=== PATIENT | male | born 1945 | race Asian ===

== ENCOUNTER 2023-06-12 06:54 | Outpatient (CLI) | payer BC, SELFPAY | END 2023-06-12 06:55 | disposition home or self-care (01) | LOC: INJ CL 06:59 | PROVIDERS: Visit Provider Family Medicine | DX: M54.16 Radiculopathy, lumbar region (principal); M48.062 Spinal stenosis, lumbar region with neurogenic claudication | CPT/HCPCS: 62323; J0702; Q9966 ==

== ENCOUNTER 2024-05-23 15:29 | Emergency (ER) | payer BC, SELFPAY ==
[2024-05-23 15:44] VITALS: BP 146/72; PULSE 67; RESP 20; TEMP 36.1; O2SAT 97
--- NOTE | 2024-05-23 16:06 | CRLHL7_ITS ---
For Patients: As a result of the Century Cures Act, medical imaging exams and procedure reports are released immediately into your electronic medical record. You may view this report before your referring provider. If you have questions, please contact your health care provider. Indication: Fall 1 week prior Technique: Volumetric multidetector CT images of the head were obtained without the administration of low osmolar intravenous contrast. Comparison: None available Findings: There is no intra-axial or extra-axial fluid collection. There is no mass effect or midline shift. There is age-related cortical atrophy with mild sulcal widening and ex vacuo dilatation of the lateral ventricles. There are chronic small vessel disease changes in the subcortical and periventricular white matter without lost blevins-white differentiation. The orbits and their contents are grossly within normal limits. The bony calvarium is grossly intact. The paranasal sinuses are clear. The mastoid air cells are well aerated. Impression: 1. Age-related changes of the brain without acute intracranial abnormality. Please note that all CT scans at this facility use dose modulation, iterative reconstruction, and/or weight-based dosing when appropriate to reduce radiation dose to as low as reasonably achievable. Dictated by Karl Lawler MD @ 05/23/2024 4:43:11 PM (Electronically Signed)
--- NOTE | 2024-05-23 16:46 | ED.GENADULT ---
HPI - General Adult General Chief complaint: Headache/Migraine Stated complaint: Fell last week, hit head; headache Time Seen by Provider: 05/23/24 16:05 Source: family and hourly sign language interpreter Mode of arrival: ambulatory Limitations: language barrier History of Present Illness HPI narrative: [age] year old patient coming in today complaining of head and neck pain. Six days ago patient lost control of his walker and fell backwards hitting his head on the concrete. He states that he has pain in the back of the head and his neck. He states that he has had daily headaches since. No increasing confusion or fogginess. He has felt nauseated on and off. No vomiting. He has been eating and drinking normally. No chest or abdominal pain. No changes in vision or hearing. Related Data Home Medications ?Medication ?Instructions ?Recorded ?Confirmed amlodipine 5 mg tablet 5 mg PO DAILY 05/23/24 05/23/24 atenolol 50 mg tablet 50 mg PO DAILY 05/23/24 05/23/24 atorvastatin 20 mg tablet 20 mg PO QPM 05/23/24 05/23/24 citalopram 20 mg tablet 20 mg PO QPM 05/23/24 05/23/24 gabapentin 300 mg capsule mg PO 05/23/24 omeprazole 20 mg capsule,delayed 20 mg PO DAILY 05/23/24 05/23/24 release Allergies Allergy/AdvReac Type Severity Reaction Status Date / Time lisinopril Allergy Verified 05/23/24 15:57 Review of Systems Status of ROS: Reports: 6 or more systems reviewed and unremarkable except as noted in History and below [facility] Social History Smoking Status: Never smoker Do you use any of these nicotine containing products: None How often do you have a drink containing alcohol: never How often do you have six or more drinks on one occasion: Never AUDIT-C Alcohol total score: 0 Non-prescribed substance use: denies use Exam Narrative: Exam Narrative: Thin, elderly patient in no acute distress. Alert and oriented. Answers questions appropriately. Patient speaks through Filipino hourly sign language interpreter. He is not tachypneic. He does not seem short of breath. HEENT: Normocephalic atraumatic. Pupils are equally round reactive to light. Extraocular muscles are intact. Conjunctivae are moist without any icterus noted. Moist mucous membranes. No trauma noted to the inside of the mouth. There is no trauma of the scalp. He has some tenderness to palpation over the cervical spine and the occipital skull. Extremities: Bilateral lower extremities are without edema. Skin: Well perfused without any obvious rashes or abnormal bruising. Strength is 4/5 of the upper and lower extremities, symmetric. Reflexes are 2+ and symmetric at the knees. [id number] is normal. There is no nystagmus either horizontally or vertically. Patient does have good range of motion at the neck with mild discomfort of the neck muscles bilaterally. Const: Vital Signs, click to edit/add: Vital Signs - 24 hr 05/23/24 15:44 Temperature 97.0 F L Pulse Rate [Pulse Oximeter] 67 Respiratory Rate 20 Blood Pressure [Ri ght Upper Arm] 146/72 H Pulse Oximetry 97 Oxygen Delivery Me thod Room Air Course Course ED Course: Head and neck CT did not show any acute pathology. Vital Signs Vital signs: Initial Vital Signs Temperature 97.0 F L 05/23/24 15:44 Temperature Source Temporal Artery Scan 05/23/24 15:44 Pulse Rate 67 05/23/24 15:44 Respiratory Rate 20 05/23/24 15:44 Blood Pressure 146/72 H 05/23/24 15:44 Blood Pressure Mean 96 05/23/24 15:44 Blood Pressure Position Sitting 05/23/24 15:44 Pulse Oximetry 97 05/23/24 15:44 Oxygen Delivery Method Room Air 05/23/24 15:44 Vital Signs Temperature 97.0 F L 05/23/24 15:44 Pulse Rate 67 05/23/24 15:44 Respiratory Rate 20 05/23/24 15:44 Blood Pressure 146/72 H 05/23/24 15:44 Pulse Oximetry 97 05/23/24 15:44 Oxygen Delivery Method Room Air 05/23/24 15:44 Temperature 97.0 F L 05/23/24 15:44 Pulse Rate 67 05/23/24 15:44 Respiratory Rate 20 05/23/24 15:44 Blood Pressure 146/72 H 05/23/24 15:44 Pulse Oximetry 97 05/23/24 15:44 Oxygen Delivery Method Room Air 05/23/24 15:44 Medical Decision Making MDM Narrative Medical decision making narrative: 79-year-old male status post fall, closed head injury mild concussion. We discussed symptomatic treatment and reasons for follow-up. Imaging Data CT scan - head: Attestation: I have reviewed the pertinent imaging results. Radiologist's impression: Technique: Volumetric multidetector CT images of the head were obtained without the administration of low osmolar intravenous contrast. Comparison: None available Findings: There is no intra-axial or extra-axial fluid collection. There is no mass effect or midline shift. There is age-related cortical atrophy with mild sulcal widening and ex vacuo dilatation of the lateral ventricles. There are chronic small vessel disease changes in the subcortical and periventricular white matter without lost blevins-white differentiation. The orbits and their contents are grossly within normal limits. The bony calvarium is grossly intact. The paranasal sinuses are clear. The mastoid air cells are well aerated. Impression: 1. Age-related changes of the brain without acute intracranial abnormality. CT- Other: Attestation: I have reviewed the pertinent imaging results. Radiologist's impression: Noncontrast axial CT of the cervical spine with coronal and sagittal reformats. Comparison: MRI cervical spine 08/27/2023 Findings: Mild reversal of the normal cervical lordosis. Degenerative grade 1 anterolisthesis at C3-4 and C4-5, retrolisthesis at C5-6 and C6-7, anterolisthesis at C7-T1. Craniocervical junction appears within normal limits. No acute fracture identified. Fatty prominence of the retropharyngeal space, without focal lesion, acute inflammation or abnormal fluid collection, presumed incidental physiologic variant. Bulky ventral projecting osteophytes throughout the mid cervical levels. Degenerative disc and endplate changes, uncovertebral and facet arthropathy. High-grade (moderate to severe) spinal canal stenosis at C4-5, C5-6 and C6-7, and high-grade neural foraminal stenosis, on the right at C2-3, bilaterally at C3-4, C4-5, C5-6, C6-7, and on the right at C7-T1. No pulmonary apical pneumothorax Impression: 1. No evidence of acute fracture or traumatic malalignment in the cervical spine. 2. Advanced cervical spondylosis as detailed. Discharge Plan Discharge Clinical Impression: Closed head injury, Mild concussion Patient Disposition: Home w/ Parent or Adult Condition: Stable Additional Instructions: There is no evidence of any bleeding inside the brain or any broken bones of the head or neck. You likely have a mild concussion which can present as headaches on and off for several weeks. Okay to take Tylenol as needed/as directed for discomfort. Okay to use a heating pad to the neck as needed for 20 minutes at a time, multiple times per day. Do not apply heat directly to the skin. If you feel like you are not improving over the next week, recommend you follow-up with your primary care provider. Prescriptions: No Action atorvastatin 20 mg tablet 20 mg PO QPM amlodipine 5 mg tablet 5 mg PO DAILY citalopram 20 mg tablet 20 mg PO QPM gabapentin 300 mg capsule PO omeprazole 20 mg capsule,delayed release(DR/EC) 20 mg PO DAILY atenolol 50 mg tablet 50 mg PO DAILY Follow Up/Referrals: Provider,Not a Local [Primary Care Provider] - Stand Alone Forms: [employer] Info Instructions
--- NOTE | 2024-05-23 16:53 | CRLHL7_ITS ---
For Patients: As a result of the Century Cures Act, medical imaging exams and procedure reports are released immediately into your electronic medical record. You may view this report before your referring provider. If you have questions, please contact your health care provider. Indication: Fall, neck pain, history of pinched nerve in neck Technique: Noncontrast axial CT of the cervical spine with coronal and sagittal reformats. Comparison: MRI cervical spine 08/27/2023 Findings: Mild reversal of the normal cervical lordosis. Degenerative grade 1 anterolisthesis at C3-4 and C4-5, retrolisthesis at C5-6 and C6-7, anterolisthesis at C7-T1. Craniocervical junction appears within normal limits. No acute fracture identified. Fatty prominence of the retropharyngeal space, without focal lesion, acute inflammation or abnormal fluid collection, presumed incidental physiologic variant. Bulky ventral projecting osteophytes throughout the mid cervical levels. Degenerative disc and endplate changes, uncovertebral and facet arthropathy. High-grade (moderate to severe) spinal canal stenosis at C4-5, C5-6 and C6-7, and high-grade neural foraminal stenosis, on the right at C2-3, bilaterally at C3-4, C4-5, C5-6, C6-7, and on the right at C7-T1. No pulmonary apical pneumothorax Impression: 1. No evidence of acute fracture or traumatic malalignment in the cervical spine. 2. Advanced cervical spondylosis as detailed. Please note that all CT scans at this facility use dose modulation, iterative reconstruction, and/or weight-based dosing when appropriate to reduce radiation dose to as low as reasonably achievable. Dictated by Dahiana Sosa MD @ 05/23/2024 5:40:48 PM (Electronically Signed)
== END 2024-05-23 18:08 | disposition home or self-care (01) ==
PROVIDERS: Emergency Provider Family Medicine
DX: S06.0X1A Concussion with loss of consciousness of 30 minutes or less, initial encounter (principal); W01.10XA Fall on same level from slipping, tripping and stumbling with subsequent striking against unspecified object, initial encounter
CPT/HCPCS: 70450; 72125; 99283; 99284